=== PATIENT | female | born 1960 | race Caucasian/White ===

== ENCOUNTER 2023-08-27 22:40 | Emergency (ER) | payer OTHER, SELFPAY ==
[2023-08-27 22:43] VITALS: BP 138/90
--- NOTE | 2023-08-27 23:22 | ED.GENMED ---
History of Present Illness
<Kentrell Bishop DO, Resident - Last Filed: 08/28/23 02:15>
General
Chief Complaint: Headache
Source: patient
Time Seen by Provider: 08/27/23 22:56
History of Present Illness
History of Present Illness:
Pt is a 63 YO F with history of malnutrition, SCT, AML in remission and kidney disease presenting to the ED after experiencing weakness, nausea vomiting and headaches. She reports onset of fatigue during 15 of August weekend followed by decreased
appetite, weight loss, nausea and dizziness over the last week. She reports vomiting this morning and severe headache today. She took 2 extra strength Tylenol at 7:30 PM today.
Past History
<Kentrell Bishop DO, Resident - Last Filed: 08/28/23 02:15>
Past History
ED Past Medical History: Other (Tachycardia)
ED Past Surgical History:
Social History
Tobacco: Non-smoker
Alcohol: Occasional
Drug: None
Personal:
Living: with family
Review of Systems
<Kentrell Bishop DO, Resident - Last Filed: 08/28/23 02:15>
Review of Systems
Constitutional: Reports weight loss and fatigue
EENT: Reports no symptoms
Respiratory: Reports no symptoms
Cardiac: Reports no symptoms
ABD/GI: Reports nausea and vomiting
Musculoskeletal: Reports no symptoms
Skin: Reports no symptoms
Neurological: Reports dizzy, headache and weakness
Phy Exam
<Kenrtell Bishop DO, Resident - Last Filed: 08/28/23 02:15>
General Physical Exam
General Presentation: well appearing
General age: appears stated age
General Skin: warm and dry
General Habitus: normal
General Mental: alert
General Hydration: dry mucous membranes
Cardiovascular Exam
Cardiovascular Exam: regular rate/rhythm, no edema, no gallop, no JVD, no murmur and normal peripheral pulses
Pulmonary Exam
Pulmonary Exam: lungs clear, no respiratory distress, no rales, chest non tender, no crackles, no rhonchi, no stridor, no wheezing and no cough
Gastrointestinal Exam
Gastrointestinal Exam: normal bowel sounds, non tender, soft, no pulsatile mass and non distended
Musculoskeletal Exam
Musculoskeletal Exam: full ROM and no edema
Course
<Kentrell Bishop DO, Resident - Last Filed: 08/28/23 02:15>
Orders/Labs/Results
Orders:
Orders
08/27/23 23:45
0.9% Sodium Chloride 1000 ml [Nss] 1,000 ml IV BOLUS
08/27/23 23:57
Complete Blood Count/With Diff Urgent
Comprehensive Metabolic Panel Urgent
08/27/23 23:59
Dexamethasone Sod Phosphate [Decadron] 10 mg IV NOW STA
Diphenhydramine [Benadryl] 25 mg IV NOW STA
08/28/23 00:01
CT Head W/o Iv Contrast Urgent
Comment:
Reason For Exam: headache
Abnormal Lab Results
08/27/23
23:57
RBC 2.96 L 10^6/uL
(4.20-5.40)
Hgb 10.4 L g/dL
(12.0-16.0)
Hct 29.0 L %
(37.0-47.0)
MCH 35.1 H pg
(27.0-31.0)
Absolute Lymphs (auto) 0.8 L 10^3/uL
(1.2-3.4)
Lymphocytes % 11.9 L %
(20.5-51.1)
BUN 22 H mg/dl
(7-17)
Creatinine 1.3 H mg/dL
(0.6-1.0)
Glucose 117 H mg/dl
(70-99)
AST 41 H U/L
(14-36)
ALT 39 H U/L
(0-35)
08/27/23 23:57
08/27/23 23:57
Vital Signs
Initial and Last Documented VS:
Initial Vital Signs
Temp Pulse Resp BP Pulse Ox
97.4 F 86 22 138/90 100
08/27/23 22:43 08/27/23 22:43 08/27/23 22:43 08/27/23 22:43 08/27/23 22:43
Last Documented Vital Signs
Temp Pulse Resp BP Pulse Ox
98.6 F 73 17 159/69 98
08/28/23 01:52 08/28/23 00:34 08/28/23 00:34 08/28/23 01:52 08/28/23 01:52
<Liam Rees, - Last Filed: 08/28/23 01:48>
Orders/Labs/Results
Orders:
Orders
08/27/23 23:45
0.9% Sodium Chloride 1000 ml [Nss] 1,000 ml IV BOLUS
08/27/23 23:57
Complete Blood Count/With Diff Urgent
Comprehensive Metabolic Panel Urgent
08/27/23 23:59
Dexamethasone Sod Phosphate [Decadron] 10 mg IV NOW STA
Diphenhydramine [Benadryl] 25 mg IV NOW STA
08/28/23 00:01
CT Head W/o Iv Contrast Urgent
Comment:
Reason For Exam: headache
Abnormal Lab Results
08/27/23
23:57
RBC 2.96 L 10^6/uL
(4.20-5.40)
Hgb 10.4 L g/dL
(12.0-16.0)
Hct 29.0 L %
(37.0-47.0)
MCH 35.1 H pg
(27.0-31.0)
Absolute Lymphs (auto) 0.8 L 10^3/uL
(1.2-3.4)
Lymphocytes % 11.9 L %
(20.5-51.1)
BUN 22 H mg/dl
(7-17)
Creatinine 1.3 H mg/dL
(0.6-1.0)
Glucose 117 H mg/dl
(70-99)
AST 41 H U/L
(14-36)
ALT 39 H U/L
(0-35)
08/27/23 23:57
08/27/23 23:57
Vital Signs
Initial and Last Documented VS:
Initial Vital Signs
Temp Pulse Resp BP Pulse Ox
97.4 F 86 22 138/90 100
08/27/23 22:43 08/27/23 22:43 08/27/23 22:43 08/27/23 22:43 08/27/23 22:43
Last Documented Vital Signs
Temp Pulse Resp BP Pulse Ox
98.6 F 73 17 159/69 98
08/28/23 01:52 08/28/23 00:34 08/28/23 00:34 08/28/23 01:52 08/28/23 01:52
<Kentrell Bishop DO, Resident - Last Filed: 08/28/23 02:15>
MDM/Problems Addressed
Differential Diagnosis Includes:
headache, viral illness
MDM/Problems Addressed:
Pt is a 63 YO F with history of malnutrition, SCT, AML in remission and kidney disease presenting to the ED after experiencing weakness, nausea vomiting and headaches. Patient was given IVF, Decadron and Benadryl for symptoms and rehydration. CT
Head negative.
Chronic conditions affecting care:
NA
Acute Exacerbation and/or Progression of Chronic Illness:
NA
<Kentrell Bishop DO, Resident - Last Filed: 08/28/23 02:15>
*Pulse Oximetry
Patient hypoxic: no
*EKG
Interpreted by ED Provider?: NA
*Roller Staker Interpretation
Rate: Roller Staker- N/A
*Critical Care Note
Total Time (30-74mins, 75-104mins- exclusive of procedures): Not Applicable
<Liam Rees DO - Last Filed: 08/28/23 01:48>
Update Note
Update Note:
CT head without contrast
No prior imaging for comparison
IMPRESSION:
-No acute intracranial hemorrhage, herniation, or hydrocephalus.
-No CT evidence of acute large vascular territory ischemia, although MRI is most sensitive for this diagnosis.
-No acute calvarial fracture.
-The paranasal sinuses and mastoid air cells are clear where seen.
Patient refused antiemetics or prescription for antiemetics.
ED Attending Note
<Kentrell Bishop DO, Resident - Last Filed: 08/28/23 02:15>
-
Portions of this chart may have been created with voice recognition software.� Occasional wrong word or��sound alike� substitutions may have occurred due to the inherent limitations of voice recognition software.
<Liam Rees DO - Last Filed: 08/28/23 01:48>
ED Attending Note
Patient seen and examined by attending physician: Yes
I performed a history and physical exam of patient and discussed management with resident, I reviewed resident's note and agree with documented findings and plan of care.: Yes
ED Attending Note:
Pleasant 63-year-old female history of headache, dizziness, weakness. Patient has kidney disease and states that she sometimes gets dehydrated. She had some vomiting and headache today. She took Tylenol at 7:30 PM this evening. Denies fever or
chills. Patient states that she has headaches. Tonight was not as severe as typical. She states that since she did not have a fever, she reports her symptoms were not as severe as normal. Patient seen in conjunction with the resident. I
reviewed and agree with her history and treatment plan. On my independent physical exam patient is resting comfortably. She had a liter of fluids. CT scan of the head was negative. Patient to be discharged home.
Discharge Plan
Departure
Patient Disposition: Home (Routine Discharge)
Date of Disposition: 08/28/23
Time of Disposition: 01:35
Patient with high blood pressure during this ER visit?: Yes
Condition: Good
Discharge Problem:
Headache
Instructions: Headache, Adult (DC), Dehydration, Adult ED
Prescriptions:
No Action
venlafaxine 75 mg Tablet
75 mg PO DAILY
sulfamethoxazole-trimethoprim [Bactrim DS] 800-160 mg Tablet
1 tab PO QMWF
Patient Comments:
MWF
acyclovir 800 mg Tablet
800 mg PO BID
digoxin 125 mcg (0.125 mg) Tablet
125 mcg PO DAILY
posaconazole 100 mg Tablet,Delayed Release (Dr/Ec)
100 mg PO TID
gilteritinib 40 mg Tablet
40 mg PO DAILY
Referrals:
Maddi Dias MD [Family Provider] -
Activity Restrictions/Additional Instructions:
It was a pleasure meeting you and taking part in your care. We hope for your continued healing and wellness.
Please read discharge instructions in their entirety. However, they are for general education and may not describe your exact diagnosis at discharge. Information on your ER visit and medical conditions were discussed with you along with appropriate
follow up information...
If indicated, please take your medications as instructed and indicated on discharge paperwork.
Please schedule a follow up appointment as directed. Call to schedule an appointment
Please return to the emergency department with ANY change in, persisting, or worsening of symptoms. If any of your symptoms do not improve, or persist, or become more severe within 6-12 hours, please return to the emergency department for further
care.
Please return to the emergency department if you develop a headache, neck pain/stiffness, fever greater than 100.4F, chest pain, shortness of breath, persistent nausea, vomiting, slurred speech, difficulty walking, numbness/tingling, weakness, signs
of infection or any other symptoms that are worrisome to you.
If you have any questions or concerns please do not hesitate to call the Hospital at or E-mail me directly at [email or web address]
Interventions
Interventions:
*Risk Screen - Suicide Last Done: 08/27/23 22:43
*Neglect/Abuse Screening Last Done: 08/27/23 22:43
ED- Fall Risk Assessment Last Done: 08/28/23 01:53
*Nursing Disposition Last Done: 08/28/23 01:53
PI-Endcox-Rghzsdhuof Assessment Last Done: 08/28/23 00:16
ED- Neurological Assessment Last Done: 08/28/23 00:16
Discharge Date and Time
Discharge Date/Time: 08/28/23 01:54
Print Language: SETSWANA
[2023-08-27] MEDS: NSS 1000 IV (23:59)
[2023-08-28 00:14] LABS: % Basophils 0.4 % (0-2); % Eosinophils 4.2 % (0-6); % Immature Granulocytes 0.4 % (0-0.5); % Lymphocytes 11.9 % (20.5-51.1); % Monocytes 7.9 % (1.7-9.3); % Neutrophils 75.2 % (42.2-75.2); Absolute Eosinophils 0.3 10^3/uL (0-0.7); Absolute Lymphocytes 0.8 10^3/uL (1.2-3.4); Absolute Monocytes 0.6 10^3/uL (0.1-0.6); Absolute Neutrophils 5.2 10^3/uL (1.4-6.5); Hemoglobin 10.4 g/dL (12.0-16.0); Mean Corp Hgb Conc. 35.9 g/dL (33.0-37.0); Mean Corpuscular Hgb 35.1 pg (27.0-31.0); Mean Platelet Volume 9.4 fL (7.4-10.4); Nucleated Red Blood Cells % 0 %; Platelet Count 247 10^3/uL (130-400); Red Blood Cell Count 2.96 10^6/uL (4.20-5.40); Red Cell Dist. Width 12.7 % (11.5-14.5)
[2023-08-28 00:25] LABS: ALT (SGPT) 39 U/L (0-35); AST (SGOT) 41 U/L (14-36); Alkaline Phosphatase 77 U/L (38-126); Blood Urea Nitrogen 22 mg/dl (7-17); Calcium 9.2 mg/dl (8.4-10.2); Carbon Dioxide 30 mmol/L (22-30); Chloride 103 mmol/L (98-107); Glucose 117 mg/dl (70-99); Potassium 3.7 mmol/L (3.5-5.1); Sodium 139 mmol/L (135-145); Total Bilirubin 0.7 mg/dl (0.2-1.3); Total Protein 6.3 g/dl (6.3-8.2); eGFR 46.78
[2023-08-28] MEDS: BENADRYL 25 MG IV (00:26)
[2023-08-28] MEDS: DECADRON 10 MG IV (00:27)
[2023-08-28 00:34] VITALS: BP 165/85
[2023-08-28 01:52] VITALS: BP 159/69
== END 2023-08-28 01:54 | disposition home or self-care (01) ==
LOC: EMR 22:40
PROVIDERS: EMERGENCY PHYSICIAN Student in an Organized Health Care Education/Training Program; FAMILY PHYSICIAN Family Medicine
DX: R51.9 Headache, unspecified (principal); R11.2 Nausea with vomiting, unspecified; C92.01 Acute myeloblastic leukemia, in remission
CPT/HCPCS: 99284; 96374; 96375; 70450; 80053; 85025

== ENCOUNTER → 2023-12-11 11:41 | Outpatient (REF) | payer OTHER, SELFPAY | LOC: WDC 11:41 | PROVIDERS: ATTENDING PHYSICIAN Family Medicine | DX: Z12.31 Encounter for screening mammogram for malignant neoplasm of breast (principal) | CPT/HCPCS: 77063; 77067 ==

== ENCOUNTER 2024-07-07 21:01 | Inpatient (IN) | payer OTHER, SELFPAY ==
[2024-07-07] VITALS (7 sets, daily range): BP systolic 93–108; BP diastolic 61–76; BMI 23.7
--- NOTE | 2024-07-07 17:32 | ED.GENMED ---
History of Present Illness
General
Chief Complaint: Fever
Source: patient
Exam Limitations: none
Time Seen by Provider: 07/07/24 17:11
Nursing documentation reviewed up to this point in time: agreed with
History of Present Illness
History of Present Illness:
Patient is a 63-year-old female who presents to the ER for evaluation. Patient has a past medical history of leukemia status post chemotherapy and stem cell transplants on oral Xospata ( last stem cell transplant was 3 years ago) She is followed
by [facility]. In addition she has a history of chronic kidney disease from the chemotherapy and treatments. She was in [place] 9 days ago and for the past week has had nasal congestion/post nasal drip /mild cough.
Pt was not aware that she had a fever, has not taken any tylenol today.
She denies shortness of breath. She has not been drinking a lot of fluids and with her history of kidney issues is concerned about dehydration.
Past History
Past History
ED Past Medical History: Other (Tachycardia)
ED Past Surgical History:
Social History
Tobacco: Non-smoker
Alcohol: Occasional
Drug: None
Personal:
Living: with family
Review of Systems
Review of Systems
Allergies reviewed?: Yes
All Other Systems: ROS reviewed and negative except as documented in HPI and ROS
Constitutional: Reports chills
EENT: Reports other (mild chest congestion )
Respiratory: Reports cough
Cardiac: Reports no symptoms
ABD/GI: Reports no symptoms
Musculoskeletal: Reports no symptoms
Skin: Reports no symptoms
Neurological: Reports no symptoms
Psychiatric: Reports no symptoms
Phy Exam
General Physical Exam
General Presentation: no apparent distress
General age: appears stated age
General Skin: warm and dry
General Habitus: normal
General Mental: alert
General Hydration: appears well hydrated
Cardiovascular Exam
Cardiovascular Exam: regular rate/rhythm, no murmur, normal peripheral pulses and tachycardia
Pulmonary Exam
Pulmonary Exam: no respiratory distress and other (+ cough right base )
Neurological Exam
Neurological Exam: alert and oriented x3
Musculoskeletal Exam
Musculoskeletal Exam: full ROM
Skin Exam
Skin Exam: normal color and warm/dry
Psychiatric Exam
Psychiatric Exam: normal mood/affect
Sepsis
Sepsis Screening
Sepsis Assessment: Sepsis Ruled Out
Sepsis Screen
Sepsis Screen: Sepsis Ruled Out
Date: 07/07/24
Time: 20:34
Course
Orders/Labs/Results
Orders:
Orders
07/07/24 17:29
CR Chest - 2 Views Urgent
Comment:
Reason For Exam: fever
07/07/24 17:31
Acetaminophen [Tylenol] 1,000 mg PO NOW STA
07/07/24 17:32
0.9% Sodium Chloride 1000 ml [Nss] 1,000 ml IV BOLUS
07/07/24 17:39
COVID-19 Antigen Urgent
Source: Nasal Swab
Complete Blood Count/With Diff Urgent
Comprehensive Metabolic Panel Urgent
Digoxin Urgent
Comment: ADD ON
Lactic Acid Q4H
Comment: CANCEL 2nd LACTIC ACID IF 1st LACTIC ACID IS LESS THAN 2
Influenza A+B Rapid Molecular Urgent
[place] Source: Nasal Swab
Specimen Description:
07/07/24 17:40
Electrocardiogram (*1) Stat
Reason for Study: Other
Other Reason for Exam: chest pain
EKG- Treatment ONCE
Blood Culture Q30M
[place] Source: Blood/Venous
Specimen Description:
Blood Culture Q30M
[facility] Source: Blood/Venous
Specimen Description:
07/07/24 18:00
Urinalysis Reflex To Culture Urgent
Date Specimen was Collected: 07/07/24
Time Specimen was Collected: 17:58
Urine Microscopic Reflex Cult Urgent
Urine Culture Urgent
[facility] Source: U
Specimen Description:
Date Specimen was Collected: 07/07/24
Time Specimen was Collected: 17:58
07/07/24 19:54
LevoFLOXacin 500 MG/100 ML [Levaquin] 500 mg in 100 ml IV NOW
07/07/24 19:58
Azithromycin 500 mg/250 ml [Zithromax Infusion] 500 mg in 250 ml IV NOW
07/07/24 20:00
Add On- LAB Urgent
Tests Added?: digoxin level
07/07/24 21:45
Lactic Acid Q4H
Comment: CANCEL 2nd LACTIC ACID IF 1st LACTIC ACID IS LESS THAN 2
Abnormal Lab Results
07/07/24 07/07/24
17:39 18:00
WBC 15.6 H 10^3/uL
(4.8-10.8)
RBC 3.25 L 10^6/uL
(4.20-5.40)
Hgb 10.7 L g/dL
(12.0-16.0)
Hct 32.2 L %
(37.0-47.0)
MCV 99.1 H fL
(81.0-99.0)
MCH 32.9 H pg
(27.0-31.0)
Abs Immat Gran (auto) 0.1 H 10^3/uL
(0-0.05)
Absolute Neuts (auto) 12.4 H 10^3/uL
(1.4-6.5)
Absolute Monos (auto) 1.5 H 10^3/uL
(0.1-0.6)
Neutrophils % 79.3 H %
(42.2-75.2)
Lymphocytes % 10.3 L %
(20.5-51.1)
Monocytes % 9.4 H %
(1.7-9.3)
Sodium 133 L mmol/L
(135-145)
BUN 32 H mg/dl
(7-17)
Creatinine 1.9 H mg/dL
(0.6-1.0)
Glucose 126 H mg/dl
(70-99)
Ur Occult Blood Reflex 3+ A
(Negative)
Urine RBC 3-6 A /HPF
(0-2)
Urine Bacteria (Reflex) Moderate A
(Negative)
Urine Albumin (Reflex) 3+ A
(Neg - Trace)
07/07/24 17:39
07/07/24 17:39
Vital Signs
Initial and Last Documented VS:
Initial Vital Signs
Temp Pulse Resp BP Pulse Ox
102.9 F H 138 16 108/72 95
07/07/24 16:33 07/07/24 16:33 07/07/24 16:33 07/07/24 16:33 07/07/24 16:33
Last Documented Vital Signs
Temp Pulse Resp BP Pulse Ox
98.7 F 91 16 95/62 94
07/07/24 19:48 07/07/24 20:15 07/07/24 20:15 07/07/24 20:00 07/07/24 20:15
Boat Wrapper consulted with Physician
Boat Wrapper consulted with physician?: Yes (Negrita)
MDM/Problems Addressed
MDM/Problems Addressed:
Patient is a 63-year-old female with history of leukemia, stem cell transplant x 2 and chronic renal disease followed by [facility] presents to the ER for evaluation of weakness postnasal drip cough cold symptoms. She did travel to [place] about 9 days
ago. Patient is negative for COVID flu however positive for bilateral pneumonia. Patient presented febrile at 102.9 tachycardic. She was given fluids and Tylenol temperature and tachycardia improved her white count however is 15.6 her lactic is
normal her renal function however is elevated at 1.9.
Given bilateral pneumonia with elevated white count and patient's history and renal insufficiency would recommend admission. Case reviewed with ED physician agrees with assessment plan.
I initially ordered Levaquin and Rocephin as patient is allergic to cefepime and Zosyn however hospitalist spoke with infectious disease I does recommend meropenem and Doxy which hospitalist will order. case d/c with DR Burrell.
*Radiology
Radiology exam reviewed: radiology read reviewed
*Pulse Oximetry
Patient hypoxic: no
*Critical Care Note
Total Time (30-74mins, 75-104mins- exclusive of procedures): Not Applicable
Data Reviewed
Review of Other/Old Records Reveals: Labs
ED Attending Note
-
Portions of this chart may have been created with voice recognition software.� Occasional wrong word or��sound alike� substitutions may have occurred due to the inherent limitations of voice recognition software.
Discharge Plan
Departure
Patient Disposition: Admit
Date of Disposition: 07/07/24
Time of Disposition: 20:03
Admit to: Med/Surg
Admit to doctor: hospitalist
Presentation/result/management discussed w/ accepting MD/DO: Hospitalist
Patient with high blood pressure during this ER visit?: No
Condition: Fair
Covid-19: Not Applicable
Discharge Problem:
bilateral pneumonia, Acute on chronic renal insufficiency
Prescriptions:
No Action
venlafaxine 75 mg Tablet
75 mg PO DAILY
sulfamethoxazole-trimethoprim [Bactrim DS] 800-160 mg Tablet
1 tab PO QMWF
Patient Comments:
MWF
acyclovir 800 mg Tablet
800 mg PO BID
digoxin 125 mcg (0.125 mg) Tablet
125 mcg PO DAILY
posaconazole 100 mg Tablet,Delayed Release (Dr/Ec)
100 mg PO TID
gilteritinib 40 mg Tablet
40 mg PO DAILY
Referrals:
Maddi Dias MD [Family Provider] -
Interventions
Interventions:
*Risk Screen - Suicide Last Done: 07/07/24 16:33
*General Assessment Last Done: 07/07/24 17:00
*Neglect/Abuse Screening Last Done: 07/07/24 16:33
*ED- Fall Risk Assessment Last Done: 07/07/24 17:00
*ED COVID-19 Vaccine History Last Done: 07/07/24 17:00
ED- Neurological Assessment Last Done: 07/07/24 17:03
ED-Skin Assessment Last Done: 07/07/24 17:03
Discharge Date and Time
Print Language: LITHUANIAN
[2024-07-07] MEDS: NSS 1000 IV (17:51)
[2024-07-07 18:14] LABS: % Basophils 0.3 % (0-2); % Eosinophils 0.3 % (0-6); % Immature Granulocytes 0.4 % (0-0.5); % Lymphocytes 10.3 % (20.5-51.1); % Monocytes 9.4 % (1.7-9.3); % Neutrophils 79.3 % (42.2-75.2); Absolute Basophils 0.1 10^3/uL (0-0.2); Absolute Immature Granulocytes 0.1 10^3/uL (0-0.05); Absolute Lymphocytes 1.6 10^3/uL (1.2-3.4); Absolute Monocytes 1.5 10^3/uL (0.1-0.6); Absolute Neutrophils 12.4 10^3/uL (1.4-6.5); Hematocrit 32.2 % (37.0-47.0); Hemoglobin 10.7 g/dL (12.0-16.0); Mean Corp Hgb Conc. 33.2 g/dL (33.0-37.0); Mean Corpuscular Hgb 32.9 pg (27.0-31.0); Mean Corpuscular Volume 99.1 fL (81.0-99.0); Nucleated Red Blood Cells % 0 %; Platelet Count 279 10^3/uL (130-400); Red Blood Cell Count 3.25 10^6/uL (4.20-5.40); Red Cell Dist. Width 12.4 % (11.5-14.5); White Blood Cell Count 15.6 10^3/uL (4.8-10.8)
[2024-07-07 18:14] LABS: Urine Albumin 3+ (Neg - Trace); Urine Bilirubin Negative (Negative); Urine Character Clear (Clear); Urine Color Yellow; Urine Glucose Negative (Negative); Urine Ketone Negative (Negative); Urine Leukocyte Negative (Negative); Urine Nitrite Negative (Negative); Urine Occult Blood 3+ (Negative); Urine Urobilinogen Negative (Neg - 1+)
[2024-07-07] MEDS: TYLENOL 1000 MG PO (18:14)
[2024-07-07 18:23] LABS: Lactic Acid 1.1 mmol/L (0.7-2.0)
[2024-07-07 18:25] LABS: ALT (SGPT) 20 U/L (0-35); AST (SGOT) 26 U/L (14-36); Albumin 3.9 g/dl (3.5-5.0); Alkaline Phosphatase 75 U/L (38-126); Blood Urea Nitrogen 32 mg/dl (7-17); Carbon Dioxide 25 mmol/L (22-30); Chloride 100 mmol/L (98-107); Estimated Creatinine Clearance 31 ml/min; Glucose 126 mg/dl (70-99); Potassium 4.4 mmol/L (3.5-5.1); Sodium 133 mmol/L (135-145); Total Bilirubin 0.8 mg/dl (0.2-1.3); Total Protein 6.6 g/dl (6.3-8.2); eGFR 29.67
[2024-07-07 18:29] LABS: COVID-19 Antigen Negative (Negative)
[2024-07-07 18:30] LABS: Urine Bacteria Moderate (Negative)
--- NOTE | 2024-07-07 20:10 | HPS.HSE ---
Addendum entered and electronically signed by Lisandro Burrell MD 07/07/24 21:08:
Digoxin for HX SVT per patient
- P card Dr Esparza at [facility]
- check Dig level due to droped eGFR
- hold Dig for now
Original Note:
Family Physician
-
Family Physician: Maddi Dias
Chief Complaint
-
nasal congestion/post nasal drip /mild cough.
History of Present Illness
63F HX CKD3a , leukemia status post chemotherapy and stem cell transplants at [facility] 3yras ago, currently on on Giltritinib Bactrom D for PCP Px, Acyclovir , had vacation in [place] 9days ago seen at ER for nasal congestion/post nasal drip /mild
cough.
- Pt was not aware that she had a fever, has not taken any tylenol today.
- came in Fever 102.9, ST 120s
- WCC 15.6
- HX allergy to Cefepime( rash) and Zosyn ( rash) per ER EMERGENCY MEDICAL DISPATCHER
Of note: case d/w ID , suggest IV Meropenem and PO Doxy
ROS:
- denies shortness of breath.
- not been drinking a lot of fluids and with her history of kidney issues is concerned about dehydration.
Medical History
Past Medical History
Past Medical History: Reports Cancer (Leukemia s/p status post chemotherapy and stem cell transplants at [facility] in 2021) and Other (CKD3a ( Baseline Cr 1.3, eGFR 46) )
Past Surgical History: Reports
Social History
Tobacco: Non-smoker
Alcohol: Occasional
Family History
Family History: Not pertinent
Allergies / Home Medications
Allergies reflects when Allergies were last updated in [facility].
Home Medications with original date entered in [facility]
Allergy/Medication List:
Allergies
Allergy/AdvReac Type Severity Reaction Status Date / Time
aprepitant Allergy Unknown Unknown Verified 08/27/23 23:47
cefepime Allergy Rash Verified 08/27/23 22:47
piperacillin [From Zosyn] Allergy Rash Verified 08/27/23 22:47
shellfish derived Allergy Unknown Verified 08/27/23 22:47
tazobactam [From Zosyn] Allergy Rash Verified 08/27/23 22:47
Home Medications
digoxin 125 mcg (0.125 mg) tablet 125 mcg PO DAILY 01/06/23
gilteritinib 40 mg tablet 40 mg PO DAILY 01/06/23
rosuvastatin 10 mg tablet 10 mg PO DAILY 07/07/24
Review of Systems
-
Constitutional: Reports See HPI and Fever
EENT: Reports No Symptoms
Respiratory: Reports See HPI
Cardiac: Reports No Symptoms
Abdomen/GI: Reports No Symptoms
: Reports No Symptoms
Musculoskeletal: Reports No Symptoms
Skin: Reports No Symptoms
Neurological: Reports No Symptoms
Endocrine: Reports No Symptoms
Hematologic/Lymphatic: Reports No Symptoms
Psych: Reports No Symptoms
Physical Exam
Vital Signs
Vital Signs
Temp Pulse Resp BP Pulse Ox
98.7 F 91 11 107/63 94
07/07/24 19:48 07/07/24 19:45 07/07/24 19:45 07/07/24 19:26 07/07/24 19:45
Physical Exam
General: No Apparent Distress, Comfortable and Conversant; No Respiratory Distress
HEENT: NormoCephalic, Anicteric and Moist mucous membranes
Respiratory: Clear
Cardiac: S1/S2, Regular Rhythm and Tachycardia
Breast: Deferred by me
GI: Soft, Non Tender, Non Distended and Normal Bowel Sounds
Genito-urinary: Deferred by me
Musculoskeletal: No Edema
Neuro: AO x 3
Psych: Calm and Intact Judgment/Insight
Laboratory Results
-
05/26/25 17:39
07/07/24 17:39
Laboratory Results
Lactic Acid 1.1 mmol/L (0.7-2.0) 07/07/24 17:39
Total Bilirubin 0.8 mg/dl (0.2-1.3) 07/07/24 17:39
AST 26 U/L (14-36) 07/07/24 17:39
ALT 20 U/L (0-35) 07/07/24 17:39
Alkaline Phosphatase 75 U/L (38-126) 07/07/24 17:39
Data Reviewed
-
Diagnostic Radiology: Report Reviewed by me
Lab Data: Labs Reviewed by me
Impression/Plan
-
Selected Entries
07/07/24
16:33 07/07/24
20:00 07/07/24
20:00
Temp 102.9 F H
Pulse 93
Blood pressure 95/62
Labs
08/27/23 07/07/24
23:57 17:39
WBC 7.0 15.6 H
Hgb 10.4 L 10.7 L
Plt Count 247 279
Sodium 133 L
BUN 32 H
Creatinine 1.3 H 1.9 H
NEG Flu A & B
NEG Covid
BCx sent
CXR
Bilateral lower lobe pneumonia, right greater than left.
No prior hospitalist admission:
ASSESSMENT & PLAN
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
B/L LLL PNA presumed CAP
Sepsis due to PNA
Hi grade fever, tachycardia and Hypotensive on arrival
- NEG LA
- BCx sent
- LR IVF and f/u BP
- HX rash with Cefepime and Zosyn
- f/u T, BP and WCC
- Case dw ID suggest Meropenem ad PO Doxy
- ID Consult
PATRICIA (Cr 1.9 , eGFR 29) due to sepsis with hypotension
CKD3a( Baseline Cr 1.3, eGFR 46)
- F/ U Cr in response to septic fluid Tx
On Digoxin
- check Dig level to lower eGFR
- Hold Dig for now
HX leukemia status post chemotherapy and stem cell transplants at [facility] 3yras ago
- currently on on Gilteritinib
DVT Px: SQH
Full code
IP TLM
[2024-07-07] MEDS: LEVAQUIN 100 IV (20:20)
[2024-07-07 20:40] LABS: Digoxin < 0.4 ng/ml (0.8-2.0)
[2024-07-07] MEDS: VIBRAMYCIN 100 MG PO (21:13)
[2024-07-07] MEDS: LR 1000 IV (22:20)
[2024-07-07] MEDS: MERREM 1000 MG IV (22:22)
[2024-07-07] MEDS: STERILE WATER FOR INJECTION 20 ML IV (22:22)
--- NOTE | 2024-07-07 23:15 | PTCARENOTE ---
Patient arrived to floor from ED. Patient walked from stretcher to bed. Patient AAOx3. Patient oriented to room, call salvador within reach, bed in lowest position. Staff went in to patient's room to obtain blood cultures, staff told this RN patient
wanted explanation as to why she needed blood cultures. This RN educated patient on why blood cultures were needed d/t possible infection in the blood and that she is highly susceptible to infection. Patient refused to have blood cultures obtained.
This RN and other staff educated her on the benefits of having her blood drawn. She stated 'maybe in the morning when they draw other labs'. Lactic acid order not being obtained d/t first lab being below 2. Will continue to monitor.
[2024-07-08 03:23] VITALS: BP 93/51
[2024-07-08 05:38] LABS: % Basophils 0.4 % (0-2); % Eosinophils 1.9 % (0-6); % Immature Granulocytes 0.6 % (0-0.5); % Lymphocytes 11.4 % (20.5-51.1); % Monocytes 8.7 % (1.7-9.3); Absolute Basophils 0.1 10^3/uL (0-0.2); Absolute Eosinophils 0.3 10^3/uL (0-0.7); Absolute Immature Granulocytes 0.1 10^3/uL (0-0.05); Absolute Lymphocytes 1.6 10^3/uL (1.2-3.4); Absolute Monocytes 1.2 10^3/uL (0.1-0.6); Absolute Neutrophils 10.7 10^3/uL (1.4-6.5); Hematocrit 30.6 % (37.0-47.0); Hemoglobin 9.9 g/dL (12.0-16.0); Mean Corp Hgb Conc. 32.4 g/dL (33.0-37.0); Mean Corpuscular Hgb 32.1 pg (27.0-31.0); Mean Corpuscular Volume 99.4 fL (81.0-99.0); Mean Platelet Volume 8.8 fL (7.4-10.4); Nucleated Red Blood Cells % 0 %; Platelet Count 270 10^3/uL (130-400); Red Blood Cell Count 3.08 10^6/uL (4.20-5.40); Red Cell Dist. Width 12.4 % (11.5-14.5); White Blood Cell Count 13.9 10^3/uL (4.8-10.8)
[2024-07-08 06:53] LABS: ALT (SGPT) 18 U/L (0-35); AST (SGOT) 23 U/L (14-36); Albumin 3.6 g/dl (3.5-5.0); Alkaline Phosphatase 77 U/L (38-126); Blood Urea Nitrogen 32 mg/dl (7-17); Calcium 9.3 mg/dl (8.4-10.2); Carbon Dioxide 25 mmol/L (22-30); Chloride 106 mmol/L (98-107); Estimated Creatinine Clearance 37 ml/min; Glucose 96 mg/dl (70-99); Potassium 4.6 mmol/L (3.5-5.1); Sodium 139 mmol/L (135-145); Total Bilirubin 0.6 mg/dl (0.2-1.3); Total Protein 6.3 g/dl (6.3-8.2); eGFR 36.47
[2024-07-08 06:57] LABS: Digoxin < 0.4 ng/ml (0.8-2.0)
[2024-07-08 07:15] VITALS: BP 96/61
[2024-07-08] MEDS: VIBRAMYCIN 100 MG PO ×2 (08:26→20:43)
[2024-07-08] MEDS: HEPARIN 5000 UNITS SC ×2 (08:26→20:43)
[2024-07-08] MEDS: CRESTOR 10 MG PO (08:26)
[2024-07-08 09:04] LABS: Urine Albumin 3+ (Neg - Trace); Urine Bilirubin Negative (Negative); Urine Character Clear (Clear); Urine Color Yellow; Urine Glucose Negative (Negative); Urine Ketone Negative (Negative); Urine Leukocyte Negative (Negative); Urine Nitrite Negative (Negative); Urine Occult Blood 2+ (Negative); Urine Specific Gravity 1.015 (<1.030); Urine Urobilinogen Negative (Neg - 1+)
[2024-07-08] MEDS: NON-FORMULARY ITEM 40 MG PO (09:11)
[2024-07-08 09:23] LABS: Urine Squamous Cell 0-2 /LPF (Few)
[2024-07-08 09:24] LABS: Urine Amorphous Seen
[2024-07-08 09:25] LABS: Urine White Cell 0-2 /HPF (0-5)
[2024-07-08 09:26] LABS: Urine Granular Cast 0-2 /LPF (0)
[2024-07-08 10:57] VITALS: BP 98/57
[2024-07-08] MEDS: STERILE WATER FOR INJECTION 20 ML IV ×2 (11:02→21:53)
[2024-07-08] MEDS: MERREM 1000 MG IV ×2 (11:02→21:53)
--- NOTE | 2024-07-08 12:49 | W.PN.HOSP.TC ---
Today's Communication/Plan
-
Continue antibiotics pending cultures.
Follow WBC.
Observe off IV fluid
Assessment / Plan
Assessment / Plan
Impression:
Presentation with fever and upper respiratory symptoms
Bilateral right greater than left pneumonia.
History of AML status post stem cell transplant x 2, on gilteritinib.
PATRICIA on CKD 3A
History of SVT on digoxin
Plan:
Bilateral right greater than left pneumonia presumed community-acquired.
Stable respiratory status
Initial concern for sepsis given soft BP, although arounds low BP at the baseline
Nontoxic-appearing.
Chest x-ray with bilateral right greater than left infiltrate.
Blood cultures pending.
Initiated empirically on meropenem and doxycycline
Monitor closely given immunosuppressed state
Infectious this consultation
AML status post cell transplant x 2, currently on gilteritinib
PATRICIA on CKD stage IIIa with baseline creatinine 1.3�1.6 baseline creatinine improving with hydration 1.9�1.6. Monitor closely
History of PVCs
Presentation ECG with NSR
Dig level 0.4
Resume digoxin
Anticipated Discharge: 24 - 48 hours
Subjective/Interval History
-
Date of Service: July 08, 2024
Objective Data
-
Labs:
Laboratory Results
07/08/24
05:24
WBC 13.9 H
Hgb 9.9 L
Hct 30.6 L
Plt Count 270
Sodium 139
Potassium 4.6
Chloride 106
Carbon Dioxide 25
BUN 32 H
Creatinine 1.6 H
Glucose 96
Calcium 9.3
Total Bilirubin 0.6
AST 23
ALT 18
Alkaline Phosphatase 77
Vital Signs:
Vital Signs
Temp Pulse Resp BP Pulse Ox
98.5 F 72 18 98/57 96
07/08/24 10:57 07/08/24 10:57 07/08/24 10:57 07/08/24 10:57 07/08/24 10:57
I&O
07/07/24 07/08/24 07/09/24
06:59 06:59 06:59
Output Total 350 / 350
Balance -350 / -350
Physical Exam
-
General: Well Developed and No Apparent Distress
HEENT: Normocephalic, Atraumatic and Moist Mucous Membranes
Respiratory: Clear to Auscultation
Cardiac: Regular Rhythm and S1/S2; Negative Murmur, Rub or Gallop
GI: Soft, Nontender, Nondistended and Normal Bowel Sounds; Negative Organomegaly
Rectal: Deferred by Provider
Musculoskeletal: No Clubbing, No Cyanosis and No Edema
Skin: Negative Rash
Neuro: Nonfocal/Grossly Intact
[2024-07-08] MEDS: LANOXIN 125 MCG PO (12:57)
[2024-07-08 14:55] VITALS: BP 104/58
--- NOTE | 2024-07-08 15:55 | CON.ID ---
Consultation
-
Date/Time Consultation Requested: 07/07/20242116
Date/Time Consultation Performed: 07/08/2024 14:48
Requesting Provider: Dr. Bee
Performing Provider: Dr. Mike
Reason for Consultation: Pneumonia
Chief Complaint / Past History
History of Present Illness
Ara Lux is a 63-year-old female being evaluated at the request of Dr. Bee in regards to pneumonia. History is obtained from chart review, along with patient interview.
The patient has a significant past medical history of AML, first diagnosed in 2014. She underwent stem cell transplant in 2016, and again in 2021. She has been maintained on gilteritinib.
She reports that this year she has had approximately 4 episodes of episodes of 'colds', but they have been self-limited thus far. She recently went to [facility] from 06/23 through 06/28 on vacation. While there, she reports she felt well, but
noted that she developed some leg edema. Once back she helped her son move in [facility], and last week saw her highway technician and noted some postnasal drip and some nasal congestion. Approximate 4 days ago she developed a headache and felt 'terrible' with
ongoing cold symptomatology. She notes that she had a poor appetite and decreased p.o. intake. Ultimately, she presented to the emergency room on 07/07 secondary to ongoing illness. She denies having any fever at home, but was noted to have a
temperature of 102.9. (She has not had any further fevers since admission). She was found to have a leukocytosis, and was started on empiric antibiotics. Infectious Diseases asked to comment on further antimicrobial therapy.
She reports minimal cough at this time. She notes overall she is feeling improved since admission. She denies any chest pain. She notes minimal sputum production.
Past History
Additional Past Medical History:
AML
SVT
CKD
HLD
Additional Past Surgical History:
Allergy History:
aprepitant Allergy (Unknown, Verified 08/27/23 23:47)
Unknown
cefepime Allergy (Verified 08/27/23 22:47)
Rash
piperacillin [From Zosyn] Allergy (Verified 08/27/23 22:47)
Rash
shellfish derived Allergy (Verified 08/27/23 22:47)
Unknown
Medications Reviewed: Yes
Current Antibiotics:
Meropenem 1 g IV every 12 hours
Doxycycline
Social History
Tobacco: Non-Smoker
Alcohol: Occasional
Drug: None
Personal:
Living: With Family
Employment: Disabled
Family History
Family History: Not Pertinent
Review of Systems
Vital Signs
Temp Pulse Resp BP Pulse Ox
98.8 F 90 17 104/58 97
07/08/24 14:55 07/08/24 14:55 07/08/24 14:55 07/08/24 14:55 07/08/24 14:55
Physical Exam
Physical Exam
Constitutional: No Acute Distress, Comfortable and Non-toxic
Head: Normocephalic
Eyes: Pupils Equal, Pupils Round, No Conjunctival Hemorrhage and Sclera Anicteric
Oral: No Thrush and No Ulcers
Cardiovascular: S1/S2; Negative S3/S4
Pulmonary: Symmetric, Coarse and Non Labored
Gastrointestinal: Soft, Non Tender, Non Distended, Normal Bowel Sounds, No Rebound and No Guarding
Extremities: Edema; Negative Cyanosis or Erythema
Skin: Warm and Dry; Negative Rash or Jaundice
Neurological: Awake and Alert
Psychological: Calm
Lab / Diagnostic Study Results
07/08/24 05:24
07/08/24 05:24
Abs Immat Gran (auto) 0.1 10^3/uL (0-0.05) H 07/08/24 05:24
Absolute Neuts (auto) 10.7 10^3/uL (1.4-6.5) H 07/08/24 05:24
Absolute Lymphs (auto) 1.6 10^3/uL (1.2-3.4) 07/08/24 05:24
Absolute Monos (auto) 1.2 10^3/uL (0.1-0.6) H 07/08/24 05:24
Absolute Basos (auto) 0.1 10^3/uL (0-0.2) 07/08/24 05:24
Immature Gran % 0.6 % (0-0.5) H 07/08/24 05:24
Neutrophils % 77.0 % (42.2-75.2) H 07/08/24 05:24
Lymphocytes % 11.4 % (20.5-51.1) L 07/08/24 05:24
Monocytes % 8.7 % (1.7-9.3) 07/08/24 05:24
Eosinophils % 1.9 % (0-6) 07/08/24 05:24
Basophils % 0.4 % (0-2) 07/08/24 05:24
Lactic Acid Cancelled 07/08/24 09:17
Ur Squamous Epith Cells 0-2 /LPF (Few) 07/08/24 08:45
Microbiology Results
Micro:
07/08/24 06:54 Blood Culture - Pending
Blood/Venous
07/08/24 05:24 Blood Culture - Pending
Blood/Venous
07/07/24 18:00 Urine Culture - Pending
Urine
07/07/24 17:39 Influenza Types A & B ([facility]) - Final
Nasal Swab Negative for Influenza A & B, NAAT
Negative results must be combined with clinical observations
and patient history.
Nucleic Acid Amplification test (NAAT)performed on the
[employer] platform.
07/07/24 17:40 Blood Culture - Pending
Blood/Venous
07/07/24 17:40 Blood Culture - Pending
Blood/Venous
Imaging:
07/07/2024 CXR (2 view): Mild to moderate interstitial prominence in the medial right lung base. Subtle interstitial prominence in the left lung base. Findings consistent with pneumonia. No focal dense consolidation. Upper lung zones are clear.
No pleural effusion. Please see full dictation for additional detail. Film personally viewed.
Assessment / Plan
Bibasilar pneumonia - CAP in immunocompromised patient
Leukocytosis
Fever
Immunocompromise state secondary to medications
AML
SVT
CKD
HLD
Recommendations:
Continue with current abx for today.
Recheck EKG in AM. If no QTc prolongation, will likely transition to levaquin to complete a 5-7 day course of abx.
Follow pending cultures.
Monitor WBC and temps.
[2024-07-08 19:00] VITALS: BP 103/66
[2024-07-08 23:00] VITALS: BP 103/62
[2024-07-09 03:00] VITALS: BP 98/57
[2024-07-09 06:22] LABS: % Basophils 0.6 % (0-2); % Eosinophils 3.5 % (0-6); % Immature Granulocytes 0.6 % (0-0.5); % Lymphocytes 21.1 % (20.5-51.1); % Monocytes 9.5 % (1.7-9.3); % Neutrophils 64.7 % (42.2-75.2); Absolute Basophils 0.1 10^3/uL (0-0.2); Absolute Eosinophils 0.3 10^3/uL (0-0.7); Absolute Immature Granulocytes 0.1 10^3/uL (0-0.05); Absolute Lymphocytes 1.7 10^3/uL (1.2-3.4); Absolute Monocytes 0.8 10^3/uL (0.1-0.6); Absolute Neutrophils 5.2 10^3/uL (1.4-6.5); Hematocrit 31.3 % (37.0-47.0); Mean Corp Hgb Conc. 31.9 g/dL (33.0-37.0); Mean Corpuscular Hgb 32.1 pg (27.0-31.0); Mean Corpuscular Volume 100.3 fL (81.0-99.0); Nucleated Red Blood Cells % 0 %; Platelet Count 300 10^3/uL (130-400); Red Blood Cell Count 3.12 10^6/uL (4.20-5.40); Red Cell Dist. Width 12.3 % (11.5-14.5); White Blood Cell Count 8.1 10^3/uL (4.8-10.8)
[2024-07-09 06:39] LABS: Blood Urea Nitrogen 34 mg/dl (7-17); Calcium 9.5 mg/dl (8.4-10.2); Carbon Dioxide 29 mmol/L (22-30); Chloride 106 mmol/L (98-107); Estimated Creatinine Clearance 40 ml/min; Glucose 103 mg/dl (70-99); Potassium 4.7 mmol/L (3.5-5.1); Sodium 141 mmol/L (135-145)
[2024-07-09 07:31] VITALS: BP 109/62
[2024-07-09] MEDS: NON-FORMULARY ITEM 40 MG PO (07:56)
[2024-07-09] MEDS: LANOXIN 125 MCG PO (07:59)
[2024-07-09] MEDS: CRESTOR 10 MG PO (08:00)
[2024-07-09] MEDS: HEPARIN 5000 UNITS SC (08:00)
[2024-07-09] MEDS: VIBRAMYCIN 100 MG PO (08:00)
--- NOTE | 2024-07-09 09:23 | W.PN.ID1 ---
Date of Service
Date of Service: July 09, 2024
Today's Communication
Transition to oral Levaquin. See below�
����������������������������������������������������������
Assessment / Plan
Bibasilar pneumonia - CAP in immunocompromised patient
Leukocytosis
Fever
Immunocompromise state secondary to medications
AML
SVT
CKD
HLD
Recommendations:
Leukocytosis has resolved today.
Normal QTc on today's EKG
Discontinue further meropenem/doxycycline, and transition to levofloxacin 750 mg p.o. every 48 hours for 3 additional doses.
Follow-up chest x-ray in 6 weeks.
����������������������������������������������������������
Chief Complaint
-: Pneumonia
Subjective / Review of Systems
Review of Systems: No Fever, No Chills, Cough and No Sputum Production
Vital Signs / Physical Exam
Vital Signs
Vital Signs
Temp Pulse Resp BP Pulse Ox
97.7 F 85 18 109/62 97
07/09/24 07:31 07/09/24 07:59 07/09/24 07:31 07/09/24 07:31 07/09/24 07:31
Physical Exam
Constitutional: No Acute Distress, Comfortable and Non-toxic
Eyes: Sclera Anicteric
Cardiovascular: Regular Rate and S1/S2; Negative S3/S4
Pulmonary: Symmetric, Coarse and Non Labored; Negative Wheezes or Rales
Gastrointestinal: Soft and Non Tender
Neurological: Awake and Alert
Psychological: Calm
Objective Data
Lab Data
Lab Results
07/09/24 05:35
07/09/24 05:35
Estimated Creat Clear 40 ml/min 07/09/24 05:35
Lactic Acid Cancelled 07/08/24 09:17
Total Bilirubin 0.6 mg/dl (0.2-1.3) 07/08/24 05:24
AST 23 U/L (14-36) 07/08/24 05:24
ALT 18 U/L (0-35) 07/08/24 05:24
Alkaline Phosphatase 77 U/L (38-126) 07/08/24 05:24
Most recent labs reviewed.
Micro Results:
07/07/24 18:00 Urine Culture - Final
Urine
07/08/24 06:54 Blood Culture - Preliminary
Blood/Venous No Growth in 24 hours- Final report to follow
07/08/24 05:24 Blood Culture - Preliminary
Blood/Venous No Growth in 24 hours- Final report to follow
07/07/24 17:40 Blood Culture - Preliminary
Blood/Venous No Growth in 24 hours- Final report to follow
07/07/24 17:40 Blood Culture - Preliminary
Blood/Venous Positive culture in progress : GPC 1 of 2 bottles (aerobic)
Gram Stain - Preliminary
07/07/24 17:39 Influenza Types A & B ([facility]) - Final
Nasal Swab Negative for Influenza A & B, NAAT
Negative results must be combined with clinical observations
and patient history.
Nucleic Acid Amplification test (NAAT)performed on the
[employer] platform.
Imaging:
07/07/2024 CXR (2 view): Mild to moderate interstitial prominence in the medial right lung base. Subtle interstitial prominence in the left lung base. Findings consistent with pneumonia. No focal dense consolidation. Upper lung zones are clear.
No pleural effusion. Please see full dictation for additional detail. Film personally viewed.
Care Review
Plan reviewed with: Physician (Hospitalist)
[2024-07-09] MEDS: LEVAQUIN 750 MG PO (10:02)
--- NOTE | 2024-07-09 10:37 | PN.CDI ---
Addendum entered and electronically signed by Juvenal Bee MD 07/10/24 16:12:
Mild PATRICIA on CKD. Unable to determine reasoning but likely in the settings of pneumonia and prerenal stimuli. Patient has no evidence of sepsis upon presentation.
Original Note:
CDI
- -
CDI:
Physician Documentation Request
Admit Date: 07/07/24 21:01
Dear Doctor Cristal,
Please review the following and provide your response in the progress notes.
Clinical Indicators:
Pt admitted with sepsis 2/2 PNA/immunocompromised /PATRICIA on CKD3a
Progress note 07/08,' PATRICIA on CKD stage IIIa with baseline creatinine 1.3�1.6 baseline creatinine improving with hydration 1.9�1.6. Monitor closely...'
Please clarify the relationship between these conditions:
Yes, _AKI__ is related to/associated with/due to _Sepsis__.
No, _AKI__ is not related to/associated with/due to __Sepsis _ but it is due to ___. (Please specify)
Other ( please specify)
Use of terms such as suspected, likely, concern for, or probable (associated with a specific diagnosis that is being evaluated, monitored, or treated as if it exists) are acceptable and can be coded in the inpatient setting, when documented at the
time of discharge.
Thank you,
Devika Longoria RN
CDI Specialist
[place] [facility]
Please use your independent medical judgment in providing your response.
[2024-07-09 10:56] VITALS: BP 106/63
--- NOTE | 2024-07-09 16:04 | W.DCSUMMARY ---
Discharge Summary
Discharge Data
Date of Admission: 07/07/24
Date of Discharge: 07/09/24
-
Pending Results: No
Hospital Course
63F HX CKD3a , leukemia status post chemotherapy and stem cell transplants at [facility] 3yras ago, currently on on Giltritinib Bactrom D for PCP Px, Acyclovir
Presented with nasal congestion and mild could along with evidence of sepsis with fever and tachycardia. Suspected source was lungs which caused pneumonia. Chest xray showed Bilateral lower lobe pneumonia, right greater than left. Was seen by ID and
started on antibiotics with recommendation to change to oral antibiotics every 48hours hours for additional 3 more doses. Additionally, will need to repeat cxr in 6weeks.
Covid and flu were both negative.
Should be noted, noted to have an initial blood culture the was +, but repeat culture were negative. The positive blood culture was Coagulase negative staph, this is suspected to be a contamination rather then true infection.
Was seen on day of discharge Which was 07/09/2024. No new complaints. No acute overnight events.
[place] significant;y better, in a garcia to get home.
NAD
Scleral Anicteric
MMM
No JVD
CTABL
RRR, S1/S2
Soft, NT, ND, BS+
Warm, Dry
AAOx3
Calm
Discharge Plan
-
Patient Disposition: Home (Routine Discharge)
Discharge Diagnosis/Procedures: CAP
Condition: Good
Diet: As tolerated
Activity: As tolerated
Activity Restrictions/Additional Instructions:
Presented with nasal congestion and mild could along with evidence of sepsis with fever and tachycardia. Suspected source was lungs which caused pneumonia. Chest xray showed Bilateral lower lobe pneumonia, right greater than left. Was seen by ID and
started on antibiotics with recommendation to change to oral antibiotics every 48hours hours for additional 3 more doses. Additionally, will need to repeat cxr in 6weeks.
Covid and flu were both negative.
Should be noted, noted to have an initial blood culture the was +, but repeat culture were negative. The positive blood culture was Coagulase negative staph, this is suspected to be a contamination rather then true infection.
Referrals:
Maddi Dias MD [Family Provider, [facility]]
Prescriptions:
New
levofloxacin 750 mg Tablet
750 mg PO Q48H 6 Days Qty: 3 0RF
Continued
digoxin 125 mcg (0.125 mg) Tablet
125 mcg PO DAILY
gilteritinib 40 mg Tablet
40 mg PO DAILY
rosuvastatin 10 mg Tablet
10 mg PO DAILY
Discharge Orders:
Discharge Patient (As Directed); Ordered 07/09/24
Ordered By: Toni Celeste
Discharge Date and Time
Discharge Date/Time: 07/09/24 15:35
Print Language: ITALIAN
--- NOTE | 2024-07-09 16:23 | CM ---
CM met with patient at bedside. She does not like hospitals and was not happy to complete IA.
Pt lives with her and son in a 2 story home with 4 entry steps. All are (I) amb and adls. Pt's to provide transport home.
Plan: Discharge to home with no identified discharge planningneeds.
== END 2024-07-09 15:35 | disposition home or self-care (01) | DRG 194 ==
LOC: 3 WEST ACU 21:01
PROVIDERS: Internal Medicine; Nurse Practitioner; ADMITTING PHYSICIAN Internal Medicine; ATTENDING PHYSICIAN Hospitalist; EMERGENCY PHYSICIAN Student in an Organized Health Care Education/Training Program; FAMILY PHYSICIAN Family Medicine; OTHER PHYSICIAN Internal Medicine Infectious Disease
DX: J18.9 Pneumonia, unspecified organism (principal); C92.00 Acute myeloblastic leukemia, not having achieved remission; I47.10 Supraventricular tachycardia, unspecified; N17.9 Acute kidney failure, unspecified; D84.821 Immunodeficiency due to drugs; Z94.84 Stem cells transplant status; N18.31 Chronic kidney disease, stage 3a; E78.5 Hyperlipidemia, unspecified; Z11.52 Encounter for screening for COVID-19; Z79.899 Other long term (current) drug therapy; Z92.21 Personal history of antineoplastic chemotherapy; Z79.69 Long term (current) use of other immunomodulators and immunosuppressants
CPT/HCPCS: 71046; 80048; 80053; 80162; 81003; 81015; 83605; 85025; 87040; 87086; 87147; 87205; 87502; 87811; 93005; 96361; 96374; 99285; J2185

== ENCOUNTER → 2024-08-26 13:19 | Outpatient (REF) | payer OTHER, SELFPAY | LOC: HWRAD 13:19 | PROVIDERS: ATTENDING PHYSICIAN Internal Medicine Hematology; FAMILY PHYSICIAN Family Medicine | DX: C92.01 Acute myeloblastic leukemia, in remission (principal) | CPT/HCPCS: 71046 ==

== ENCOUNTER 2024-09-01 06:22 | Day surgery (SDC) | payer OTHER, SELFPAY | END 2024-09-01 16:19 | disposition home or self-care (01) | LOC: GI 06:22 | PROVIDERS: ATTENDING PHYSICIAN Internal Medicine Gastroenterology | DX: Z12.11 Encounter for screening for malignant neoplasm of colon (principal); D12.3 Benign neoplasm of transverse colon; K57.30 Diverticulosis of large intestine without perforation or abscess without bleeding; K64.8 Other hemorrhoids; Z86.0101 Personal history of adenomatous and serrated colon polyps | CPT/HCPCS: 45380; 88305 ==

== ENCOUNTER → 2024-12-11 11:52 | Outpatient (REF) | payer OTHER, SELFPAY | LOC: WDC 11:52 | PROVIDERS: ATTENDING PHYSICIAN Family Medicine | DX: Z12.31 Encounter for screening mammogram for malignant neoplasm of breast (principal) | CPT/HCPCS: 77063; 77067 ==